=== PATIENT | female | born 1945 | race Caucasian/White ===

== ENCOUNTER 2019-06-27 09:47 | Inpatient (IN) | payer OTHER, BC ==
[~2019-06-27] VITALS: Ht 160 cm; Wt 109.4 kg
[~2019-06-27 09:47] MED LIST: AUGMENTIN 875875 M1 PO; DARVOCET-N 1001 EACH PO; SWEEN CREAM57 GM TP
[2019-06-27 09:50] VITALS: BP 153/92
[2019-06-27 10:29] LABS: ABSOLUTE NEUTROPHILS 9.5 thou/uL (1.4-8.2); BASOPHILS 0.5 % (0.0-2.0); EOSINOPHILS 0.3 % (0.0-3.0); HEMATOCRIT 41.7 % (37.0-47.0); HEMOGLOBIN 13.6 gm/dL (12.0-15.0); MCH 29.7 pg (26.0-34.0); MCHC 32.7 g/dL (28.0-37.0); MONOCYTES 5.6 % (1.0-8.0); PLATELET COUNT 220 thou/uL (150-400); POLYS 83.6 % (36.0-66.0); RBC 4.58 mil/uL (4.20-5.00); RDW 13.9 % (10.5-14.5); WBC 11.4 thou/uL (4.0-11.0)
[2019-06-27 10:40] LABS: CALCIUM 10.2 mg/dL (8.5-10.1); CREATININE 1.2 mg/dL (0.6-1.0); POTASSIUM 4.1 mmol/L (3.5-5.1)
[2019-06-27 10:48] LABS: TROPONIN-I 0.27 ng/mL (<0.06)
[2019-06-27 13:54] VITALS: BP 134/62
[2019-06-27] MEDS ORDERED: VALSARTAN-HCTZ1 EAC1 PO (14:06)
[2019-06-27] MEDS ORDERED: NABUMETONE 500500 M1 PO (14:07)
[2019-06-27] MEDS ORDERED: ATORVASTATIN CA10 MG PO (14:07)
[2019-06-27 14:26] VITALS: BP 138/72
[2019-06-27 14:53] VITALS: BP 146/79
--- NOTE | 2019-06-27 16:14 | EKG ---
[address] [employer] [place] [address] ELECTROCARDIOGRAM REPORT Name: JONAS LITTLEJOHN Room #: 359-P ADM IN M.R.#: [id number] Admission: 06/27/19 Attend Phys: Yanick Whelan MD Discharge: Date of : 49 Report #: [id number] THIS REPORT FOR: //name// [facility] ED Test Date: 2019-06-27 Test Time: 10:08:09 Pat Name: JONAS LITTLEJOHN Department: Room: 359 Gender: F [employer] Assembly Supervisor: KF : 1945 Requested By: Da Botello Order Number: [id number] MD: Burton Mijares Measurements Intervals [place] Rate: 100 P: 47 ME: 156 QRS: -67 QRSD: 137 T: 87 QT: 391 QTc: 505 Interpretive Statements Sinus tachycardia Leftward axis Left bundle branch block Compared to ECG 10/27/2009 13:03:13 left bundle-branch block is now present Electronically Signed On 06-27-2019 16:14:36 [employer] by Burton Mijares [email or web address] <ELECTRONICALLY SIGNED> By: Burton Mijares MD, [facility] 06/27/19 1614 [id number] [id number] Burton Mijares MD, FAC /EPI
--- NOTE | 2019-06-27 19:49 | NUR ---
pt admitted from ER about 1600pm, pt is A&O X3, PT'S VS are stable, consult carsiology dr has seeing pt, pt denies pain and sob at this time.
[2019-06-27 20:15] VITALS: BP 144/76
[2019-06-28] VITALS (7 sets, daily range): BP systolic 124–147; BP diastolic 62–78
--- NOTE | 2019-06-28 02:50 | NUR ---
PATIENT IS PROGRESSING IN HER CARE PLAN. VITAL SIGNS STABLE WITH PATIENT HAVING NO COMPLAINTS OF NAUSEA. PATIENT DID COMPLAIN OF PAIN IN HIP WHICH WAS TREATED APPROPRIATELY THROUGH TYLENOL AND REPOSITIONING. FULLY ALERT AND ORIENTED, PATIENT IS ABLE TO CALL APPROPRIATELY FOR NEEDS AND PARTICIPATE FULLY IN CARE. BREATHING STABLE EVIDENCED BY ASSESSMENT AND SPOT OXYGENATION CHECKS. UP MULTIPLE TIMES TO BATHROOM WITH ASSISTANCE INCIDENT FREE. HOME MEDICATIONS RESTARTED TO DOCTORS ORDER. CONTINUE PLAN OF CARE.
--- NOTE | 2019-06-28 16:23 | NUR ---
ASSUMED CARE OF PATIENT AT 0700. VSS. RA. CALLS APPROPRIATELY. NO PULMONARY CHANGES THROUGHOUT SHIFT. PATIENT SWITCHED FROM LOVENOX TO XARELTO PER PHYSICIAN. CONTINUING TO MONITOR.
[2019-06-29 03:51] VITALS: BP 142/84
[2019-06-29 05:24] LABS: HEMATOCRIT 37.7 % (37.0-47.0); HEMOGLOBIN 12.3 gm/dL (12.0-15.0); MCH 29.7 pg (26.0-34.0); MCHC 32.5 g/dL (28.0-37.0); MCV 91.3 fL (80.0-100.0); RBC 4.13 mil/uL (4.20-5.00); WBC 7.7 thou/uL (4.0-11.0)
[2019-06-29 05:34] LABS: CALCIUM 9.1 mg/dL (8.5-10.1); CREATININE 1.3 mg/dL (0.6-1.0); POTASSIUM 4.2 mmol/L (3.5-5.1)
--- NOTE | 2019-06-29 06:23 | NUR ---
PATIENT IS ADVANCING IN HER CARE PLAN. VITAL SIGNS STABLE WITH PATIENT HAVING NO COMPLAINTS OF NAUSEA. PATIENT DID COMPLAIN OF CHRONIC PAIN IN LEFT HIP WHICH WAS TREATED APPROPRIATELY THROUGH MEDICATION AND REPOSITIONING. NO PROBLEMS BREATHING EVIDENCED BY ASSESSMENT AND SPOT OXYGENATION CHECKS. UP MULTIPLE TIMES TO RESTROOM WITH ASSISTANCE INCIDENT FREE. PATIENT IS ANXIOUS FOR DISCHARGE SOON. CONTINUE PLAN OF CARE.
[2019-06-29 07:54] VITALS: BP 136/52
[2019-06-29] MEDS ORDERED: XARELTO15 MG PO (08:33)
[2019-06-29 13:05] VITALS: BP 136/52
--- NOTE | 2019-06-29 13:27 | NUR ---
ASSUMED PATIENT CARE AT 0700. A/O X4. NO SOB ON RA. AMBULATED IN ROOM. WILL HAVE OUT JULIO BURKS. FAMILIA HOME NOW.
== END 2019-06-29 13:34 | disposition home or self-care (01) | DRG 176 ==
LOC: ER 09:47 → EROBS 12:18 → 3W 14:27
PROVIDERS: Emergency Medicine; ADMIT Family Medicine
DX: I26.99 Other pulmonary embolism without acute cor pulmonale (principal); N17.9 Acute kidney failure, unspecified; M19.90 Unspecified osteoarthritis, unspecified site; E78.5 Hyperlipidemia, unspecified; M17.10 Unilateral primary osteoarthritis, unspecified knee; Z79.899 Other long term (current) drug therapy
CPT/HCPCS: 10879

== ENCOUNTER → 2019-07-08 | Outpatient (CLI) | payer OTHER, BC ==
[~2019-07-08] MED LIST changes: +ATORVASTATIN CA10 MG PO; +NABUMETONE 500500 M1 PO; +VALSARTAN-HCTZ1 EAC1 PO; +XARELTO15 MG PO
--- NOTE | 2019-07-08 10:16 | 2DMMODE ---
[facility] [address] [place] [address] 2 D/M-MODE ECHOCARDIOGRAM Name: ERONJONAS Sonja Room #: REG CL [facility]#: [id number] Admission: 07/08/19 Attend Phys: Ad Ching Discharge: Date of : 49 Report #: [id number] THIS REPORT FOR: //name// APPROVED REPORT Study performed: 07/08/2019 07:56:54 EXAM: Comprehensive 2D, Doppler, and color-flow Echocardiogram Patient Location: Out-Patient Status: routine BSA: 2.06 HR: 73 bpm BP: 130/70 mmHg Rhythm: Sinus Irregular Other Information Study Quality: Good Indications Pericardial effusion. 2D Dimensions RVDd: 39.16 mm IVSd: 9.80 (7-11mm) LVOT Diam: 20.11 (18-24mm) LVDd: 41.50 mm PWd: 9.89 (7-11mm) Ascending Ao: 33.67 (22-36mm) LVDs: 26.69 (25-40mm) Aortic Root: 30.00 mm Volumes Left Atrial Volume (Systole) Single Plane 4CH: 40.04 mL Single Plane 2CH: 33.22 mL LA ESV Index: 19.00 mL/m2 Aortic Valve AoV Peak Jignesh.: 1.49 m/s AO Peak Gr.: 8.91 mmHg Mitral Valve E/A Ratio: 0.8 MV Decel. Time: 151.33 ms MV E Max Jignesh.: 0.97 m/s MV A Jignesh.: 1.22 m/s MV PHT: 43.88 ms [facility] [address] [place] [address] 2 D/M-MODE ECHOCARDIOGRAM Name: JONAS LITTLEJOHN Room #: REG CL Tia#: [id number] Admission: 07/08/19 Attend Phys: Ad Ching Discharge: Date of : 49 Report #: [id number] IVRT: 72.66 ms Pulmonary Valve PV Peak Jignesh.: 1.12 m/s PV Peak Gr.: 5.03 mmHg Pulmonary Vein P Vein S: 0.55 m/s P Vein A: 0.39 m/s P Vein D: 0.26 m/s P Vein A Dur.: 96.9 msec P Vein S/D Ratio: 2.12 Tricuspid Valve TR Peak Jignesh.: 2.96 m/s TR Peak Gr.: 35.16 mmHg Left Ventricle The left ventricle is normal size. There is normal left ventricular wall thickness. The left ventricular systolic function is normal. The left ventricular ejection fraction is within the normal range. LVEF is 55-60%. Mild diastolic dysfunction is present (impaired relaxation pattern). Right Ventricle The right ventricle is normal size. The right ventricular systolic function is normal. Atria The left atrium size is normal. The right atrium size is normal. Aortic Valve Aortic valve is calcified. Mild aortic regurgitation. Eccentric jets. There is no aortic valvular stenosis. Mitral Valve The mitral valve is normal in structure. Mild mitral regurgitation. No evidence of mitral valve stenosis. Tricuspid Valve The tricuspid valve is normal in structure. Mild tricuspid regurgitation. Estimated PAP is 35mmHg plus the right atrial pressure. Pulmonic Valve Pulmonic valve is not well visualized. [employer]els [facility] [address] [address] 2 D/M-MODE ECHOCARDIOGRAM Name: JONAS LITTLEJOHN Room #: REG [facility]#: [id number] Admission: 07/08/19 Attend Phys: Ad Ching Discharge: Date of : 49 Report #: [id number] The aortic root is normal in size. The ascending aorta is normal in size. The inferior vena cava is not well visualized. Pericardium There is no pericardial effusion. <Conclusion> The left ventricle is normal size. LVEF is 55-60%. Aortic valve is calcified. Mild aortic regurgitation. Eccentric jets. The mitral valve is normal in structure. Mild mitral regurgitation. The tricuspid valve is normal in structure. Mild tricuspid regurgitation. Estimated PAP is 35mmHg plus the right atrial pressure. Pulmonic valve is not well visualized. There is no pericardial effusion. <ELECTRONICALLY SIGNED> By: Ad Palacios MD 07/08/19 1016 1016 Collin Palacios MD /INF
== END ==
LOC: CV 07:53
DX: I08.3 Combined rheumatic disorders of mitral, aortic and tricuspid valves (principal); I31.3 Pericardial effusion (noninflammatory)

== ENCOUNTER → 2020-04-05 | Outpatient (CLI) | payer OTHER, BC | LOC: SJCVCIMAG 03-25 11:33 | PROVIDERS: ATTEND Family Medicine | DX: M79.604 Pain in right leg (principal); R22.41 Localized swelling, mass and lump, right lower limb ==

== ENCOUNTER 2021-08-14 13:44 | Emergency (ER) | payer OTHER, BC ==
[~2021-08-14] VITALS: Ht 160 cm; Wt 99.8 kg
[2021-08-14 15:30] LABS: HEMATOCRIT 41.1 % (37.0-47.0); HEMOGLOBIN 13.3 gm/dL (12.0-15.0); MCH 29.4 pg (26.0-34.0); MCHC 32.3 g/dL (28.0-37.0); RBC 4.51 mil/uL (4.20-5.00); RDW 13.3 % (10.5-14.5); WBC 12.9 thou/uL (4.0-11.0)
[2021-08-14 15:39] LABS: CALCIUM 9.9 mg/dL (8.5-10.1); CREATININE 1.2 mg/dL (0.6-1.0); POTASSIUM 3.8 mmol/L (3.5-5.1)
[2021-08-14 15:45] LABS: ALBUMIN 3.9 g/dL (3.4-5.0); TOTAL BILIRUBIN 0.5 mg/dL (0.2-1.0); TOTAL PROTEIN 7.8 g/dL (6.4-8.2)
[2021-08-14 18:15] VITALS: BP 154/69
== END 2021-08-14 18:16 | disposition home or self-care (01) ==
LOC: ER 13:44
PROVIDERS: Nurse Practitioner Family
DX: N95.0 Postmenopausal bleeding (principal); I10 Essential (primary) hypertension; Z79.899 Other long term (current) drug therapy